=== PATIENT | male | born 1965 | race Caucasian/White ===

== ENCOUNTER 2016-09-11 19:20 | Emergency (ER) | payer OTHER ==
[~2016-09-11 19:20] MED LIST: ASPIRINEC PO; CYMBALTA PO; DIAZEPAM PO; EFFEXOR PO; EFFEXOR XR75 MG PO; FISH OIL500 MG PO; HYDROCODON-ACE1 EAC5 PO; LITHIUM CARBON300 M1 PO; LOPID600 MG PO; LYRICA PO; LYRICA300 MG PO; PERCOCET10 PO; ROBAXIN 750750 MG PO; SEROQUEL PO; SYNTHROID PO; VALIUM10 MG PO; VENLAFAXINE HCL25 MG PO; VOLTAREN75 MG PO; ZANTAC PO; [UNRECOGNIZED DRUG - OTHER] PO
== END 2016-09-11 19:25 | disposition home or self-care (01) ==
LOC: CED 19:20
DX: G89.29 Other chronic pain (principal); F41.9 Anxiety disorder, unspecified; F17.210 Nicotine dependence, cigarettes, uncomplicated; Z79.899 Other long term (current) drug therapy
CPT/HCPCS: 96372; 99283; J1170

== ENCOUNTER 2016-09-13 19:45 | Emergency (ER) | payer OTHER | END 2016-09-13 19:49 | disposition home or self-care (01) | LOC: CED 19:45 | DX: Z53.21 Procedure and treatment not carried out due to patient leaving prior to being seen by health care provider (principal) ==

== ENCOUNTER 2016-09-15 01:01 | Inpatient (IN) | payer OTHER ==
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
[2016-09-15 09:58] LABS: ALBUMIN SERUM 3.9 g/dL (3.5-5.0); BILIRUBIN,TOTAL 0.5 mg/dL (0.2-2.0); BUN/CREATININE RATIO 8.75; CALCIUM SERUM 9.2 mg/dL (8.4-10.2); CREATININE SERUM 0.8 mg/dL (0.6-1.4); GLOM FILT RATE Estimated 104.2 mL/min (>60); POTASSIUM 4.6 mmol/L (3.5-5.1); PROTEIN TOTAL SERUM 7.1 g/dL (6.0-8.3)
[2016-09-15 10:08] LABS: BASOPHIL% 0.6 % (0-2.5); EOSINOPHIL# 0.4 X10e3 (0-0.7); EOSINOPHIL% 5.1 % (0.0-7.0); HEMATOCRIT 39.4 % (38.0-50.0); HEMOGLOBIN 13.1 gm/dL (13.0-16.0); LYMPHOCYTE# 2.1 X10e3 (1.0-3.5); LYMPHOCYTE% 26.8 % (17.0-45.0); MEAN CELL VOLUME 89.5 FL (83-96); MEAN CORPUSCULAR HEMOGLOBIN 29.8 PG (28-34); MEAN CORPUSCULAR HGB CONC 33.3 g/dL (30-36); MEAN PLATELET VOLUME 7.8 FL (6.5-11.5); MONOCYTE# 0.6 X10e3 (0-1.0); MONOCYTE% 7.2 % (3.0-12.0); NEUTROPHIL# 4.7 X10e3 (1.5-7.1); NEUTROPHIL% 60.3 % (40-75); PLATELET COUNT 254 X10e3 (140-420); RED CELL DISTRIBUTION WIDTH 13.4 % (11.0-15.5); WHITE BLOOD COUNT 7.8 X10e3 (4.0-10.5)
[2016-09-15 10:50] LABS: DIFF IND NO
== END 2016-09-15 18:43 | disposition home or self-care (01) | DRG 881 ==
LOC: P1S 01:01
PROVIDERS: Psychiatry & Neurology Psychiatry
DX: F32.9 Major depressive disorder, single episode, unspecified (principal); E11.9 Type 2 diabetes mellitus without complications; R45.851 Suicidal ideations; M79.7 Fibromyalgia; E03.9 Hypothyroidism, unspecified
CPT/HCPCS: 80053; 85025